=== PATIENT | female | born 1935 | race Two or more races ===

== ENCOUNTER 2019-07-07 15:07 | Outpatient (CLI) | payer MEDICARE, OTHER | END 2019-07-07 23:59 | disposition home or self-care (01) | LOC: RAD 15:07 | PROVIDERS: ATTEND Internal Medicine Cardiovascular Disease | DX: I70.0 Atherosclerosis of aorta (principal); R06.2 Wheezing | CPT/HCPCS: 71046 ==

== ENCOUNTER 2019-07-09 10:07 | Outpatient (CLI) | payer MEDICARE, OTHER | END 2019-07-09 23:59 | disposition home or self-care (01) | LOC: CT 10:07 | PROVIDERS: ATTEND Internal Medicine Cardiovascular Disease | DX: J98.09 Other diseases of bronchus, not elsewhere classified (principal); J84.9 Interstitial pulmonary disease, unspecified; J98.4 Other disorders of lung; I31.3 Pericardial effusion (noninflammatory); I51.7 Cardiomegaly; I70.0 Atherosclerosis of aorta; I25.10 Atherosclerotic heart disease of native coronary artery without angina pectoris; N26.1 Atrophy of kidney (terminal); M47.814 Spondylosis without myelopathy or radiculopathy, thoracic region | CPT/HCPCS: 71250-TC ==